=== PATIENT | male | born 1960 | race Caucasian/White ===

== ENCOUNTER 2020-08-21 13:01 | Emergency (ER) | payer MEDICARE, SELFPAY ==
[2020-08-21 13:13] VITALS: BP 159/85; PULSE 96; RESP 18; TEMP 36.5; O2SAT 96
--- NOTE | 2020-08-21 13:29 | ED.DENTAL ---
HPI - Dental/Oral General Chief complaint: Dental/Oral Stated complaint: toothache,chills Time Seen by Provider: 08/21/20 13:29 Source: patient Mode of arrival: ambulatory Limitations: no limitations History of Present Illness HPI Narrative: Barrett Hedrick is a 59 yo male with high cholesterol, [facility] complaints of dental pain and possible abscess in the right upper cheek. Patient has had extensive dental work done and the plan is to pull his upper teeth given a plate but he still has multiple teeth left for extraction. Right upper tooth 3 is red with gum swelling.has been unable to eat Patient smokes cigarettes-patient has lost weight in the last couple years and is no longer required to take diabetes medication but is monitored by his doctor Related Data Home Medications Medication Instructions Recorded Confirmed albuterol 90 mcg INHALATION QID 08/21/20 08/21/20 atorvastatin 40 mg PO DAILY 08/21/20 08/21/20 cetirizine [Zyrtec] 10 mg PO DAILY 08/21/20 08/21/20 ergocalciferol (vitamin D2) 1,250 mcg PO WEEKLY 08/21/20 08/21/20 [Vitamin D2] finasteride 5 mg PO DAILY 08/21/20 08/21/20 gabapentin 300 mg PO TID 08/21/20 08/21/20 glucosamine-chondroitin [Osteo 2 tablet PO TID 08/21/20 08/21/20 Bi-Flex] levothyroxine 100 mcg PO DAILY 08/21/20 08/21/20 meloxicam 15 mg PO DAILY 08/21/20 08/21/20 czqnicwc-vsr-TP-lycopen-lutein 1 tablet PO DAILY 08/21/20 08/21/20 [Centrum Silver Men] Allergies Allergy/AdvReac Type Severity Reaction Status Date / Time No Known Allergies Allergy Verified 08/21/20 13:25 Review of Systems Review of Systems: Narrative: CONSTITUTIONAL: Denies fever, chills, sweats. EYES: Denies visual changes, redness, discharge. ENT: Denies rhinorrhea, congestion, sore throat, otalgia. Right upper tooth pain CARDIOVASCULAR: Denies chest pain, palpitations, edema. RESPIRATORY: Denies dyspnea, wheezing, cough GASTROINTESTINAL: Denies abdominal pain, nausea, vomiting, diarrhea. GENITOURINARY: Denies dysuria, hematuria, abnormal discharge SKIN: Denies rash or itching. NEUROLOGIC: Denies numbness, or focal weakness. PSYCHIATRIC: Denies anxiety or depression. [facility] Past Medical History Medical History (Updated 08/21/20 @ 13:44 by Lina Santiago CNP) High cholesterol Prediabetes Family History Family History (Updated 08/21/20 @ 13:39 by Lina Santiago CNP) Other Diabetes mellitus Social History Social History (Updated 08/21/20 @ 13:39 by Lina Santiago CNP) Smoking packs per day: 1 Smoking cigarettes per day: 20.0 Smoking status: Current every day smoker Tobacco type: cigarettes Alcohol intake: current Alcohol use details: rarely Comments My nurse Exam Narrative: Exam Narrative: GENERAL: This is a well-nourished, well-developed patient, in moderate distress. HEAD: normocephalic, atraumatic. EYES: Sclera clear/white. Vision is grossly intact. EARS: External ears normal, . Hearing grossly intact. NOSE: External nose normal without nasal discharge, nares without redness, no rhinorrhea. Mouth: Right upper tooth pain tooth #3 with gum induration and you can palpate a knot above the third tooth on the cheek; bite on the right side THROAT: Mucous membranes moist, NECK: Neck supple, CARDIOVASCULAR: Regular rate and rhythm without murmurs, gallops, or rubs. RESPIRATORY: Clear to auscultation. Breath sounds equal bilaterally. No wheezes, rales, or rhonchi. GASTROINTESTINAL: Abdomen soft, SKIN: warm, intact with no suspicious lesions or rash, good texture and turgor. NEURO: awake, alert, and oriented to person, place and time. There were no obvious focal neurologic abnormalities. Steady gait EXTREMITIES: Normal range of motion. BACK: Nontender without deformity Course Course Emergency Course: Patient comes to urgent care with right upper tooth pain Started patient on clindamycin, ibuprofen, Tylenol with codeine with codeine, viscous lidocai
[2020-08-21 13:30] VITALS: BP 159/85; PULSE 96; RESP 18; TEMP 36.5; O2SAT 96
== END 2020-08-21 13:51 | disposition home or self-care (01) ==
PROVIDERS: Emergency Provider Nurse Practitioner
DX: K04.7 Periapical abscess without sinus (principal); F17.210 Nicotine dependence, cigarettes, uncomplicated; E78.00 Pure hypercholesterolemia, unspecified; R73.03 Prediabetes
CPT/HCPCS: 99213; G0463